=== PATIENT | female | born 1965 | race Caucasian/White ===

== ENCOUNTER 2021-05-11 13:57 | Emergency (ER) | payer BC, OTHER, SELFPAY ==
[2021-05-11 14:00] VITALS: BP 121/85; PULSE 66; RESP 14; TEMP 36.7; O2SAT 99
--- NOTE | 2021-05-11 14:15 | DI.RAD_ITS ---
Exam(s) XR ELBOW LT COMPLETE EXAM: XR ELBOW LT COMPLETE CLINICAL HISTORY: fall/ski injury. TECHNIQUE: 2D digital imaging was performed. COMPARISON: No exams were available for comparison FINDINGS: Four views There is a tiny submillimeter avulsion off the tip of the coronoid process. No prominent joint effus ion. No other fractures evident. No swelling of the olecranon bursa. No osseous lesions nor degene rative changes. Bone density is normal. IMPRESSION: Tiny avulsion fracture at the tip of the coronoid process of the ulna. DATA REPOSITORY: RADIATION DOSE DELIVERED:
--- NOTE | 2021-05-11 14:15 | DI.RAD_ITS ---
Exam(s) XR FOREARM LT EXAM: XR FOREARM LT CLINICAL HISTORY: fall/ski accident. TECHNIQUE: 2D digital imaging was performed. COMPARISON: No exams were available for comparison FINDINGS: Two views There is a tiny avulsion fracture off the tip of the coronoid process at the elbow level. No obvious joint effusion. No other fractures identified in the forearm bones. Radial head and neck appear un remarkable. IMPRESSION: DATA REPOSITORY: RADIATION DOSE DELIVERED:
--- NOTE | 2021-05-11 14:19 | ED.GENADUL_ITS ---
Discharge Plan Disposition Patient Disposition: HOME Condition: Improving Discharge Details Clinical Impression: Fracture of coronoid process of ulna, left, closed Primary Care Provider: Unknown,Unknown ED Provider: Ramiro Reaves [place] Meds and New Rx's Prescriptions: Continued valacyclovir [Valtrex] 500 mg Tablet 500 mg PO DAILY 0RF Discharge Instructions Instructions: Elbow Fracture (ED) Additional Instructions: X-ray reveals a tiny avulsion fracture at the tip of the coronoid process of the ulna. Wear sling until reevaluation with orthopedics back home in [place], please contact them tomorrow. Cool compresses every 2 hours for 20 minutes. Leuk-[id number] Tylenol and/or Motrin as directed for discomfort. Please watch for new or worsening symptoms and return to our ER or any ER along your travels. Medical Decision Making This is a 56-year-old female, [id number]-wvow-dzanmana, presenting to the ER for a left elbow and forearm injury status post falling backwards while skiing. She was wearing a helmet, denies any other injury. Denies numbness, tingling or weakness. Patient appears well, nontoxic, neuro, vascular, tendon intact. Plan is to obtain an elbow and forearm x-ray as her discomfort does start mid forearm. Patient took an anti-inflammatory prior to arrival, denies any other analgesia now X-ray reveals a tiny avulsion fracture of the coronoid process. Discussed x-ray findings with patient and family. Will provide a CD of their x- ray and place the patient into a sling. She traveling here from [place] and will follow up with orthopedics when she returns home. We discussed the importance of wearing a sling, cool compresses and treating her discomfort with [id number] medications. No additional questions or concerns upon discharge. Standard discharge and return precautions provided This documentation was generated using [employer] system, please disregard any oddities of phrase or misspellings. Imaging Data Radiologic Study: Attestation: I personally reviewed and interpreted this imaging study as follows: Imaging: X-Ray Radiologist's impression: PROCEDURE INFORMATION: Exam: XR Left Elbow Exam date and time: 05/11/2021 2:42 PM Age: 56 years old Clinical indication: Injury or trauma; Fall; Sprain or strain; Elbow; Left TECHNIQUE: Imaging protocol: XR Left elbow. Views: 3 or more views. COMPARISON: No relevant prior studies available. FINDINGS: Bones/joints: Small ossific fragment adjacent to the coronoid process on lateral view suggestive of avulsion fracture. Incidental supracondylar nishi spur. No dislocation. Soft tissues: Unremarkable. IMPRESSION: Tiny avulsion fracture of the coronoid process. Thank you for allowing us to participate in the care of your patient. Radiologic Study #2: Attestation: I personally reviewed and interpreted this imaging study as follows: Imaging: X-Ray Radiologist's impression: PROCEDURE INFORMATION: Exam: XR Left Forearm Exam date and time: 05/11/2021 2:41 PM Age: 56 years old Clinical indication: Injury or trauma; Fall; Sprain or strain; Radius and ulna; Left TECHNIQUE: Imaging protocol: XR Left forearm. Views: 2 views. COMPARISON: No relevant prior studies available. FINDINGS: B ones/joints: Tiny avulsion fracture of the coronoid process better visualized on same day elbow radiographs. Incidental supracondylar nishi spur. No other fractures identified. Joint spaces maintained. Soft tissues: Normal. IMPRESSION: No additional fractures identified. HPI General Mode of arrival: ambulatory . Date/Time Provider Initiated Documentation: 05/11/21 13:58 . Limitations to Documentation: no limitations . Information obtained by: patient and family . History of Present Illness 56 year old F presents to the emergency department with the chief complaint of L arm injury, described as moderate, with intensity rated at 6. Quality is described as aching, and is localized to the left and upper extremity. Patient reports no radiation. Patient started experiencing this hour(s) (1.5) and it has been constant. improves with Immobilization improves symptom(s), Medication worsens symptoms . Patient notes no other symptoms.. Patient did receive the following treatments prior to arrival, NSAID Related Data Home Medications Medication Instructions Recorded Confirmed valacyclovir 500 mg tablet 500 mg PO DAILY 05/11/21 05/11/21 (Valtrex) Allergies Allergy/AdvReac Type Severity Reaction Status Date / Time No Known Allergies Allergy Unverified 05/11/21 14:09 General Stated Complaint: Orthopedic ANABELA: 4 Review of Systems Constitutional Constitutional: Denies headache(s) and Denies weakness ENT Ears, Nose, Mouth, and Throat: Denies headache(s) Gastrointestinal Gastrointestinal: Denies nausea and Denies vomiting Musculoskeletal Musculoskeletal: Denies deformity, Reports arthralgias, Denies numbness, Reports stiffness and Denies tingling Integumentary/Breasts Skin/Breast: Denies erythema Neurologic Neurologic: Denies headache(s), Denies numbness, Denies tingling and Denies weakness PFSH All Active Problems (Updated 05/11/21 @ 15:21 by DUC Montero) Fracture of coronoid process of ulna, left, closed (Acute) Social History Smoking/Tobacco Use Status: Never Smoking risk assessment performed?: Yes Alcohol Intake: current Alcohol Intake frequency: a few times a week Substance use type: does not use Do you feel safe at home: Yes Do you feel safe in your relationship?: Yes Exam Const General: cooperative, healthy appearing, comfortable and no acute distress Orientation: alert and awake HENVA Head: normal to inspection, normocephalic and atraumatic Eyes Conjunctivae: conjunctivae normal Neck Neck: normal visual inspection, trachea midline and supple Resp Effort & Inspection: normal respiratory effort and able to speak in complete sentences Cardio Rate: regular rate Rhythm: regular rhythm Skin General skin exam: no rashes or lesions noted Neuro General: patient alert, patient awake, moves all extremities and no focal motor deficits Cognition: normal cognition Speech: speech normal Gait: normal gait Motor: muscle tone normal throughout Sensory Exam: no sensory deficits noted Extrem General: full ROM and capillary refill normal Other: Left elbow to mid forearm with diffuse mild discomfort and swelling slightly worse on the ulnar aspect. Skin is intact. Neuro, vascular, tendon intact. Full range of motion. 5 the 5 strength. Normal radial pulse and capillary refi ll. Psych Appearance: grossly normal Mental Status: mental status grossly normal Course Vital Signs Vital signs: Vital Signs Temperature 36.7 C 05/11/21 14:00 Pulse 66 05/11/21 14:00 Respiratory Rate 14 05/11/21 14:00 Blood Pressure 121/85 05/11/21 14:00 Pulse Oximetry 99 05/11/21 14:00 Temperature 36.7 C 05/11/21 14:00 Temperature Source Skin 05/11/21 14:00 Pulse 66 05/11/21 14:00 Respiratory Rate 14 05/11/21 14:00 Respiratory Effort 05/11/21 14:10 Blood Pressure 121/85 05/11/21 14:00 Pulse Oximetry 99 05/11/21 14:00 Oxygen Delivery Method Room Air 05/11/21 14:00 Oxygen Flow Rate 0 05/11/21 14:00 Pain Level 2 05/11/21 14:00 Comment ibuprofen 45 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 05/11/21 14:00 PAWSS Have you Been Recently Intoxicated or Drunk Within the Last 30 days?: No Have you Ever Experienced Previous Episodes of Alcohol Withdrawal?: No Have you ever Experienced Withdrawal Seizures?: No Have you ever Experienced Delirium Tremens(DT)s?: No Have you ever undergone Alcohol Rehabilitation Treatment (i.e, inpt ot outpatient treatment programs)?: No Have you ever Experienced Blackouts?: No Have you ever Combined Alcohol with other Downers within the last 90 days?: No Have you ever Combined Alcohol with any other Substance of Abuse during the last 90 days?: No Positive Blood Alcohol level on Presentation? [PCS.BAL]: No Evidence of Increased Autonomic Activity (i.e. HR>120, tremor, sweating, agitation, nausea)?: No Result: 0
--- NOTE | 2021-05-11 15:03 | DI.VRAD_ITS ---
PROCEDURE INFORMATION: Exam: XR Left Elbow Exam date and time: 05/11/2021 2:42 PM Age: 56 years old Clinical indication: Injury or trauma; Fall; Sprain or strain; Elbow; Left TECHNIQUE: Imaging protocol: XR Left elbow. Views: 3 or more views. COMPARISON: No relevant prior studies available. FINDINGS: Bones/joints: Small ossific fragment adjacent to the coronoid process on lateral view suggestive of avulsion fracture. Incidental supracondylar nishi spur. No dislocation. Soft tissues: Unremarkable. IMPRESSION: Tiny avulsion fracture of the coronoid process. Dictated and Authenticated by: Marcelo Zaldivar MD. Ordering:TOMÁS Rubio MD
--- NOTE | 2021-05-11 15:04 | DI.VRAD_ITS ---
PROCEDURE INFORMATION: Exam: XR Left Forearm Exam date and time: 05/11/2021 2:41 PM Age: 56 years old Clinical indication: Injury or trauma; Fall; Sprain or strain; Radius and ulna; Left TECHNIQUE: Imaging protocol: XR Left forearm. Views: 2 views. COMPARISON: No relevant prior studies available. FINDINGS: Bones/joints: Tiny avulsion fracture of the coronoid process better visualized on same day elbow radiographs. Incidental supracondylar nishi spur. No other fractures identified. Joint spaces maintained. Soft tissues: Normal. IMPRESSION: No additional fractures identified. Dictated and Authenticated by: Marcelo Zaldivar MD. Ordering:TOMÁS Rubio MD
== END 2021-05-11 15:28 | disposition home or self-care (01) ==
PROVIDERS: Emergency Provider Physician Assistant
DX: S52.042A Displaced fracture of coronoid process of left ulna, initial encounter for closed fracture (principal); V00.321A Fall from snow-skis, initial encounter
CPT/HCPCS: 99284; 73080; 73090; 99283